=== PATIENT | female | born 1975 | race Caucasian/White ===

== ENCOUNTER → 2017-06-21 | Outpatient (CLI) | payer OTHER ==
--- NOTE | 2017-06-21 10:41 | US ---
EXAMINATION TYPE: US pelvic complete DATE OF EXAM: 06/21/2017 COMPARISON: NONE CLINICAL HISTORY: N92.0 EXCESSIVE MENSTRUATION WITH REGULAR CYCLES. Patient having heavy menses every two weeks. TECHNIQUE: Transabdominal (TA). Transabdominal sonographic images of the pelvis were acquired. Date of LMP: 06/15/17 EXAM MEASUREMENTS: Uterus: 9.5 x 4.5 x 5.6 cm Endometrial Stripe: 0.4 cm Right Ovary: 6.2 x 3.1 x 3.1 cm Left Ovary: 3.7 x 2.0 x 2.1 cm 1. Uterus: Anteverted wnl 2. Endometrium: wnl 3. Right Ovary: 2 cysts measuring 1.) 3.2 x 3.1 x 3.3cm, 2.) 3.1 x 3.1 x 3.1cm 4. Left Ovary: wnl 5. Bilateral Adnexa: wnl 6. Posterior cul-de-sac: wnl Anteverted uterus is seen. Endometrium is not suspiciously thickened. Right ovary is asymmetrically enlarged with 2 simple appearing cysts measuring roughly 3 cm in size. IMPRESSION: Slightly suboptimal study without transvaginal investigation performed. There are 2 simpl e appearing 3 cm cysts seen in the right ovary. There is no significant abnormal finding otherwise id entified.
== END | disposition home or self-care (01) ==
LOC: RADUSWWP 09:56
PROVIDERS: ATTEND Family Medicine
DX: N92.0 Excessive and frequent menstruation with regular cycle (principal)
CPT/HCPCS: 76856